=== PATIENT | female | born 1965 | race Caucasian/White ===

== ENCOUNTER → 2021-08-06 | Outpatient (CLI) | payer OTHER | LOC: HEART CORB 11:36 | DX: I77.1 Stricture of artery (principal) ==

== ENCOUNTER → 2021-09-01 | Outpatient (CLI) | payer OTHER | LOC: HEART CORB 09:26 | DX: R07.2 Precordial pain (principal); R06.02 Shortness of breath | CPT/HCPCS: 78452; A9502; J2785 ==